=== PATIENT | male | born 1960 | race Caucasian/White ===

== ENCOUNTER 2017-09-14 16:06 | Emergency (ER) | payer MEDICAID ==
[~2017-09-14] VITALS: Ht 167.6 cm; Wt 100.0 kg
[2017-09-14 16:20] VITALS: BP 165/93
== END 2017-09-14 20:22 | disposition home or self-care (01) ==
LOC: ER 19:07
DX: J06.9 Acute upper respiratory infection, unspecified (principal); B97.89 Other viral agents as the cause of diseases classified elsewhere; E66.01 Morbid (severe) obesity due to excess calories; I10 Essential (primary) hypertension; J02.8 Acute pharyngitis due to other specified organisms; Z90.49 Acquired absence of other specified parts of digestive tract
CPT/HCPCS: 87070; 87430; 99284